=== PATIENT | female | born 1990 | race Hispanic/Latino ===

== ENCOUNTER 2021-10-14 00:38 | Emergency (ER) | payer OTHER ==
[2021-10-14] MEDS ORDERED: ONDANSETRON 4 MG/2 ML INJ IV ONE (01:00)
[2021-10-14] MEDS ORDERED: SODIUM CHLORIDE 0.9% 1000 ML 1,000 ML IV ONE (01:00)
[2021-10-14] MEDS ORDERED: MORPHINE 4 MG/1 ML INJ IV ONE (01:00)
--- NOTE | 2021-10-14 01:03 | Emergency Department Report ---
ED Abdominal Pain HPI - General Chief Complaint: Abdominal Pain Stated Complaint: ABDOMINAL PAIN Time Seen by Provider: 10/14/21 00:53 Source: patient Mode of arrival: Ambulatory Limitations: No Limitations - History of Present Illness Initial Comments: Patient is a 30-year-old female presents emergency with complaints of generalized diffuse abdominal pain that began 10/11/2021. She denies any nausea, vomiting, diarrhea, fever, urinary symptoms, vaginal discharge, vaginal bleeding. She states that she is having normal bowel movements she states that whenever she eats her symptoms worsen. Past medical history of PUD. Allergy to Augmentin and tramadol. She denies any past abdominal surgical history - Related Data Allergies Allergy/AdvReac Type Severity Reaction Status Date / Time amoxicillin [From Augmentin] Allergy Hives Verified 10/14/21 00:50 clavulanic acid Allergy Hives Verified 10/14/21 00:50 [From Augmentin] tramadol Allergy Rash Verified 10/14/21 00:50 ED Review of Systems ROS: Stated complaint: ABDOMINAL PAIN Other details as noted in HPI Comment: All other systems reviewed and negative ED Past Medical Hx - Past Medical History Previous Medical History?: No - Surgical History Past Surgical History?: No - Social History Smoking Status: Current Every Day Smoker Substance Use Type: None ED Physical Exam - General Limitations: No Limitations General appearance: alert, in no apparent distress - Head Head exam: Present: atraumatic, normocephalic - Eye Eye exam: Present: normal appearance - ENT ENT exam: Present: mucous membranes moist - Respiratory Respiratory exam: Present: normal lung sounds bilaterally. Absent: respiratory distress, wheezes, rales, rhonchi, stridor, chest wall tenderness, accessory muscle use, decreased breath sounds, prolonged expiratory - Cardiovascular Cardiovascular Exam: Present: regular rate, normal rhythm, normal heart sounds. Absent: systolic murmur, diastolic murmur, rubs, gallop - GI/Abdominal GI/Abdominal exam: Present: soft, tenderness (generalized), normal bowel sounds. Absent: distended, guarding, rebound, rigid - Neurological Exam Neurological exam: Present: alert, oriented X3 - Psychiatric Psychiatric exam: Present: normal affect, normal mood - Skin Skin exam: Present: warm, dry, intact ED Course Vital Signs 10/14/21 10/14/21 00:41 01:46 Temperature 98.2 F 98.5 F Pulse Rate 114 H 99 H Respiratory 18 17 Rate Blood Pressure 129/92 Blood Pressure 146/102 [Right] O2 Sat by Pulse 100 97 Oximetry - Consultations Consultation #1: 10/14/21 03:[address] Lombardo, general surgery who recommends IV Levaquin and Flagyl given that patient is allergic to penicillin and admit to hospitalist service and he will consult on patient 10/14/21 03:26 Spoke to HARI Almeida working with Dr. Walker, hospitalist accept and resume care of patient, will admit to hospital service, she states that the hospital is out of IV flagyl, I advised she could discuss with hospitalist regarding abx regimen ED Medical Decision Making - Lab Data Result diagrams: 10/14/21 01:12 10/14/21 01:12 Lab Results 10/14/21 10/14/21 10/14/21 Range/Units 01:12 01:12 01:12 WBC 13.2 H (4.5-11.0) K/mm3 RBC 4.83 (3.65-5.03) M/mm3 Hgb 14.5 H (10.1-14.3) gm/dl Hct 43.4 H (30.3-42.9) % MCV 90 (79-97) fl MCH 30 (28-32) pg MCHC 34 (30-34) % RDW 12.7 L (13.2-15.2) % Plt Count 305 (140-440) K/mm3 Lymph % (Auto) 17.8 (13.4-35.0) % [place] % (Auto) 8.0 H (0.0-7.3) % Eos % (Auto) 0.8 (0.0-4.3) % Baso % (Auto) 0.3 (0.0-1.8) % Lymph # (Auto) 2.3 (1.2-5.4) K/mm3 [place] # (Auto) 1.1 H (0.0-0.8) K/mm3 Eos # (Auto) 0.1 (0.0-0.4) K/mm3 Baso # (Auto) 0.0 (0.0-0.1) K/mm3 Seg Neutrophils % 73.1 H (40.0-70.0) % Seg Neutrophils # 9.6 H (1.8-7.7) K/mm3 Sodium 141 (137-145) mmol/L Potassium 3.8 (3.6-5.0) mmol/L Chloride 101.5 (98-107) mmol/L Carbon Dioxide 28 (22-30) mmol/L Anion Gap 15 mmol/L BUN 5 L (7-17) mg/dL Creatinine 0.5 L (0.6-1.2) mg/dL Estimated GFR > 60 ml/min BUN/Creatinine Ratio 10 % Glucose 108 H (65-100) mg/dL Calcium 9.2 (8.4-10.2) mg/dL Total Bilirubin 0.40 (0.1-1.2) mg/dL AST 15 (5-40) units/L ALT 16 (7-56) units/L Alkaline Phosphatase 103 (35-129) units/L Total Protein 7.7 (6.3-8.2) g/dL Albumin 4.2 (3.9-5) g/dL Albumin/Globulin Ratio 1.2 % Lipase 15 (13-60) units/L HCG, Qual Negative (Negative) Urine Color (Yellow) Urine Turbidity (Clear) Urine pH (5.0-7.0) Ur Specific [place] (1.003-1.030) Urine Protein (Negative) mg/dL Urine Glucose (UA) (Negative) mg/dL Urine Ketones (Negative) mg/dL Urine Blood (Negative) Urine Nitrite (Negative) Urine Bilirubin (Negative) Urine Urobilinogen (<2.0) mg/dL Ur Leukocyte Esterase (Negative) Urine WBC (Auto) (0.0-6.0) /HPF Urine RBC (Auto) (0.0-6.0) /HPF U Epithel Cells (Auto) (0-13.0) /HPF Urine Bacteria (Auto) (Negative) /HPF Urine Mucus /HPF Urine Yeast ([place]) /HPF 10/14/21 Range/Units 02:37 WBC (4.5-11.0) K/mm3 RBC (3.65-5.03) M/mm3 Hgb (10.1-14.3) gm/dl Hct (30.3-42.9) % MCV (79-97) fl MCH (28-32) pg MCHC (30-34) % RDW (13.2-15.2) % Plt Count (140-440) K/mm3 Lymph % (Auto) (13.4-35.0) % [place] % (Auto) (0.0-7.3) % Eos % (Auto) (0.0-4.3) % Baso % (Auto) (0.0-1.8) % Lymph # (Auto) (1.2-5.4) K/mm3 [place] # (Auto) (0.0-0.8) K/mm3 Eos # (Auto) (0.0-0.4) K/mm3 Baso # (Auto) (0.0-0.1) K/mm3 Seg Neutrophils % (40.0-70.0) % Seg Neutrophils # (1.8-7.7) K/mm3 Sodium (137-145) mmol/L Potassium (3.6-5.0) mmol/L Chloride (98-107) mmol/L Carbon Dioxide (22-30) mmol/L Anion Gap mmol/L BUN (7-17) mg/dL Creatinine (0.6-1.2) mg/dL Estimated GFR ml/min BUN/Creatinine Ratio % Glucose (65-100) mg/dL Calcium (8.4-10.2) mg/dL Total Bilirubin (0.1-1.2) mg/dL AST (5-40) units/L ALT (7-56) units/L Alkaline Phosphatase (35-129) units/L Total Protein (6.3-8.2) g/dL Albumin (3.9-5) g/dL Albumin/Globulin Ratio % Lipase (13-60) units/L HCG, Qual (Negative) Urine Color Straw (Yellow) Urine Turbidity Clear (Clear) Urine pH 7.0 (5.0-7.0) Ur Specific [place] 1.004 (1.003-1.030) Urine Protein <15 mg/dl (Negative) mg/dL Urine Glucose (UA) Neg (Negative) mg/dL Urine Ketones Neg (Negative) mg/dL Urine Blood Neg (Negative) Urine Nitrite Neg (Negative) Urine Bilirubin Neg (Negative) Urine Urobilinogen < 2.0 (<2.0) mg/dL Ur Leukocyte Esterase Tr (Negative) Urine WBC (Auto) 16.0 H (0.0-6.0) /HPF Urine RBC (Auto) 2.0 (0.0-6.0) /HPF U Epithel Cells (Auto) 6.0 (0-13.0) /HPF Urine Bacteria (Auto) 4+ (Negative) /HPF Urine Mucus Few /HPF Urine Yeast (Budding) 1+ /HPF Vital Signs 10/14/21 10/14/21 00:41 01:46 Temperature 98.2 F 98.5 F Pulse Rate 114 H 99 H Respiratory 18 17 Rate Blood Pressure 129/92 Blood Pressure 146/102 [Right] O2 Sat by Pulse 100 97 Oximetry - Radiology Data Radiology results: report reviewed CT OF THE ABDOMEN AND PELVIS WITH INTRAVENOUS CONTRAST INDICATION / CLINICAL INFORMATION: Generalized abdominal pain. TECHNIQUE: The patient received 100 cc Omnipaque [address] scans at this location are performed using CT dose reduction for ALARA by means of automated exposure control. COMPARISON: None available. FINDINGS: ABDOMEN: The liver, spleen, gallbladder, bile ducts, pancreas, adrenal glands, and kidneys demonstrate no significant abnormality. The aorta is normal in appearance. There is no evidence of adenopathy. There is a moderate amount of stool in the colon. I see no evidence of bowel obstruction or free air. The lung bases are clear. PELVIS: There is acute diverticulitis involving the proximal sigmoid colon with an inflamed diverticulum and moderate bowel wall thickening noted. There is mild pericolonic soft tissue stranding. There is a 2 cm pericolonic abscess posteriorly and inferiorly at that site. Minimal free fluid is present in the cul-de-sac. The uterus and ovaries are normal. There is no evidence of appendicitis. The distal ureters and urinary bladder are normal. I do not identify a hernia. There is minimal spondylosis. IMPRESSION: Acute diverticulitis involving the proximal sigmoid colon with an associated 2 cm pericolonic abscess present. Signer Name: Byron Morgan MD Signed: 10/14/2021 3:11 AM Workstation Name: [id number] Transcribed By: RT Dictated By: Byron Morgan MD Electronically Authenticated By: Byron Morgan MD Signed Date/Time: 10/14/21310 DD/ 5 TD/TT: - Medical Decision Making Patient is a 30-year-old female presents emergency with complaints of generalized diffuse abdominal pain that began 10/11/2021. She denies any nausea, vomiting, diarrhea, fever, urinary symptoms, vaginal discharge, vaginal bleeding. She states that she is having normal bowel movements she states that whenever she eats her symptoms worsen. Past medical history of PUD. Allergy to Augmentin and tramadol. She denies any past abdominal surgical history. Initial vitals with tachycardia which improved upon repeat. On exam patient has diffuse generalized abdominal tenderness. Labs significant for leukocytosis. UA shows evidence of mild UTI. CT abdomen pelvis with IV contrast IMPRESSION: Acute diverticulitis involving the proximal sigmoid colon with an associated 2 cm pericolonic abscess present. Discussed case with Dr. Lombardo, general surgery who recommends IV Levaquin and Flagyl given that patient is allergic to penicillin and admit to hospitalist service and he will consult on patient. Spoke to HARI Almeida working with Dr. Walker, hospitalist accept and resume care of patient, will admit to hospital service, she states that the hospital is out of IV flagyl, I advised she could discuss with hospitalist regarding abx regimen Critical care attestation.: If time is entered above; I have spent that time in minutes in the direct care of this critically ill patient, excluding procedure time. ED Disposition Clinical Impression: Acute diverticulitis, Intra-abdominal abscess Leukocytosis Qualifiers: Leukocytosis type: unspecified Qualified Code(s): D72.829 - Elevated white blood cell count, unspecified UTI (urinary tract infection) Qualifiers: Urinary tract infection type: acute cystitis Hematuria presence: without hematuria Qualified Code(s): N30.00 - Acute cystitis without hematuria Disposition: ADMITTED INPATIENT Is pt being admited?: Yes Does the pt Need Aspirin: No Condition: Fair Instructions: Abdominal Pain (ED) Referrals: PRIMARY CARE, [Primary Care Provider] - 3-5 Days Time of Disposition: 03:27 Print Language: IRISH
[2021-10-14] MEDS ORDERED: PANTOPRAZOLE 40 MG INJ IV ONE (01:13)
[2021-10-14] MEDS ORDERED: fentaNYL 100 MCG/2 ML INJ IV ONE (01:36)
[2021-10-14 01:49] LABS: Basophils % (Auto) 0.3 % (0.0-1.8); Eosinophils # (Auto) 0.1 K/mm3 (0.0-0.4); Eosinophils % (Auto) 0.8 % (0.0-4.3); Hematocrit 43.4 % (30.3-42.9); Hemoglobin 14.5 gm/dl (10.1-14.3); Lymphocytes # (Auto) 2.3 K/mm3 (1.2-5.4); Lymphocytes % (Auto) 17.8 % (13.4-35.0); Mean Corpuscular HGB Conc 34 % (30-34); Mean Corpuscular Volume 90 fl (79-97); Monocytes # (Auto) 1.1 K/mm3 (0.0-0.8); Platelet Count 305 K/mm3 (140-440); Red Blood Count 4.83 M/mm3 (3.65-5.03); Red Cell Distribution Width 12.7 % (13.2-15.2)
[2021-10-14 02:02] LABS: Alanine Aminotransferase 16 units/L (7-56); Albumin 4.2 g/dL (3.9-5); Blood Urea Nitrogen 5 mg/dL (7-17); Calcium 9.2 mg/dL (8.4-10.2); Hemolysis Index 6
[2021-10-14 02:04] LABS: BUN/Creatinine Ratio 10
[2021-10-14 02:05] VITALS: BP 146/102
[2021-10-14 03:06] LABS: Bacteria,Urine 4+ /HPF (Negative); Bilirubin,Urine NEG (Negative); Blood,Urine NEG (Negative); Color,Urine Straw (Yellow); Mucus,Urine FEW /HPF; Protein,Urine <15 mg/dL mg/dL (Negative); Urobilinogen,Urine < 2.0 mg/dL (<2.0)
--- NOTE | 2021-10-14 03:16 | Cat Scan Report ---
CT OF THE ABDOMEN AND PELVIS WITH INTRAVENOUS CONTRAST INDICATION / CLINICAL INFORMATION: Generalized abdominal pain. TECHNIQUE: The patient received 100 cc Omnipaque [address] scans at this location are performed using CT dose reduction for ALARA by means of automated exposure control. COMPARISON: None available. FINDINGS: ABDOMEN: The liver, spleen, gallbladder, bile ducts, pancreas, adrenal glands, and kidneys demonstrat e no significant abnormality. The aorta is normal in appearance. There is no evidence of adenopathy. There is a moderate amount of stool in the colon. I see no evidence of bowel obstruction or free air. The lung bases are clear. PELVIS: There is acute diverticulitis involving the proximal sigmoid colon with an inflamed diverticu lum and moderate bowel wall thickening noted. There is mild pericolonic soft tissue stranding. There is a 2 cm pericolonic abscess posteriorly and inferiorly at that site. Minimal free fluid is present in the cul-de-sac. The uterus and ovaries are normal. There is no evidence of appendicitis. The distal ureters and urina ry bladder are normal. I do not identify a hernia. There is minimal spondylosis. IMPRESSION: Acute diverticulitis involving the proximal sigmoid colon with an associated 2 cm pericol onic abscess present. Signer Name: Byron Morgan MD Signed: 10/14/2021 3:11 AM Workstation Name: [id number]
[2021-10-14] MEDS ORDERED: metroNIDAZOLE/NS 500 MG/100 ML 500 MG/100 ML BAG IV ONE (03:20)
[2021-10-14] MEDS ORDERED: CEFEPIME/NS 2 GM/100 ML 2 GM/100 ML BAG IV ONE (03:20)
--- NOTE | 2021-10-14 03:51 | History and Physical Report ---
History of Present Illness Date of examination: 10/14/21 Date of admission: 10/14/21 Chief complaint: abdominal pain History of present illness: This is a 30-year seen in ED at bedside. Patient reports abdominal pain of 06/27. She presents emergency with complaints of generalized diffuse abdominal pain that began 10/11/2021. She denies any nausea, vomiting, diarrhea, fever, urinary symptoms, vaginal discharge, vaginal bleeding. She states that she is having normal bowel movements she states that whenever she eats her symptoms worsen. Past medical history of PUD. On assessment, she has difuse abdominal tenderness. She admits tobacco use and illicit drug use but denies chronic alcohol use. CT of the abdomen showed diverticulitis and abscess formation. I re viewed lab valuse and v/s. patient has leucocytosis and UTI. She is Allergy to Augmentin and tramadol. She denies any past abdominal surgical history. Past History Past Medical History: No medical history Past Surgical History: Social history: lives with family, smoking (she admits drug use and she said she smokes about 1 pack daily.), IV drug use, full code. denies: alcohol abuse, prescription drug abuse Family history: diabetes (mom has diabetes) Medications and Allergies Allergies Allergy/AdvReac Type Severity Reaction Status Date / Time amoxicillin [From Augmentin] Allergy Hives Verified 10/14/21 00:50 clavulanic acid Allergy Hives Verified 10/14/21 00:50 [From Augmentin] tramadol Allergy Rash Verified 10/14/21 00:50 Active Meds: Active Medications Metronidazole (Flagyl 500 Mg/100 Ml) 500 mg in 100 mls @ 200 mls/hr IV ONCE ONE; Protocol Stop: 10/14/21 03:49 Levofloxacin/Dextrose (Levaquin 750mg/150ml) 750 mg in 150 mls @ 100 mls/hr IV ONCE ONE; Protocol Stop: 10/14/21 04:52 Last Admin: 10/14/21 03:37 Dose: 100 mls/hr Documented by: Review of Systems Constitutional: anorexia, fatigue, malaise Ears, nose, mouth and throat: no epistaxis, no bleeding gums Breasts: no discharge Cardiovascular: no chest pain, no dyspnea on exertion Respiratory: no congestion, no wheezing Gastrointestinal: abdominal pain, nausea Rectal: no hemorrhoids Integumentary: no rash, no pruritis, no redness Neurological: no head injury Psychiatric: anxiety Hematologic/Lymphatic: no easy bruising, no easy bleeding Allergic/Immunologic: no urticaria Exam - Constitutional Vitals: Temp Pulse Resp BP Pulse Ox 98.5 F 99 H 17 146/102 97 10/14/21 01:46 10/14/21 01:46 10/14/21 01:46 10/14/21 01:46 10/14/21 01:46 General appearance: Present: mild distress, well-nourished - EENT Eyes: Present: PERRL ENT: hearing intact, clear oral mucosa - Neck Neck: Present: supple, normal ROM - Respiratory Respiratory effort: normal Respiratory: bilateral: CTA - Cardiovascular Heart Sounds: Present: S1 & S2. Absent: rub, click - Extremities Extremities: pulses symmetrical, No edema Peripheral Pulses: within normal limits - Abdominal General gastrointestinal: Present: soft, non-tender, non-distended, normal bowel sounds Localized gastrointestinal: tender: diffuse, RUQ, LUQ, RLQ, LLQ Female genitourinary: Present: normal - Integumentary Integumentary: Present: clear, warm, dry - Musculoskeletal Musculoskeletal: strength equal bilaterally, generalized weakness - Psychiatric Psychiatric: appropriate mood/affect, intact judgment & insight, cooperative - Neurologic Neurologic: CNII-XII intact, moves all extremities - Allied Health Allied health notes reviewed: nursing Results - Labs CBC & Chem 7: 10/14/21 01:12 10/14/21 01:12 Labs: Abnormal lab results 10/14/21 10/14/21 10/14/21 Range/Units 01:12 01:12 02:37 WBC 13.2 H (4.5-11.0) K/mm3 Hgb 14.5 H (10.1-14.3) gm/dl Hct 43.4 H (30.3-42.9) % RDW 12.7 L (13.2-15.2) % [place] % (Auto) 8.0 H (0.0-7.3) % [place] # (Auto) 1.1 H (0.0-0.8) K/mm3 Seg Neutrophils % 73.1 H (40.0-70.0) % Seg Neutrophils # 9.6 H (1.8-7.7) K/mm3 BUN 5 L (7-17) mg/dL Creatinine 0.5 L (0.6-1.2) mg/dL Glucose 108 H (65-100) mg/dL Urine WBC (Auto) 16.0 H (0.0-6.0) /HPF Assessment and Plan - Patient Problems (1) Acute diverticulitis Current Visit: Yes Status: Acute Plan to address problem: Ct of the abdomen-showed acute diverticulitis with abscess Empiric antibiotic with flagyl and Levaquin General Surgeon consult Keep NPO (2) Intra-abdominal abscess Current Visit: Yes Status: Acute Plan to address problem: Empiric anbiotic NPO status (3) Leukocytosis Current Visit: Yes Status: Acute Qualifiers: Leukocytosis type: unspecified Qualified Code(s): D72.829 - Elevated white blood cell count, unspecified Plan to address problem: Blood culture and urine culture [place] IV hydration Monitor WBC (4) UTI (urinary tract infection) Current Visit: Yes Status: Acute Qualifiers: Urinary tract infection type: acute cystitis Hematuria presence: without hematuria Qualified Code(s): N30.00 - Acute cystitis without hematuria Plan to address problem: Urine culture
[2021-10-14] MEDS ORDERED: SENNOSIDES 8.6 MG TAB PO PRN (04:01)
[2021-10-14] MEDS ORDERED: oxyCODONE /ACETAMINOPHEN 5-325MG TAB PO PRN (04:01)
[2021-10-14] MEDS ORDERED: IBUPROFEN 600 MG TAB PO PRN (04:01)
[2021-10-14] MEDS ORDERED: ONDANSETRON 4 MG/2 ML INJ IV PRN (04:01)
[2021-10-14] MEDS ORDERED: MAGNESIUM HYDROXIDE (MOM) ORAL LIQD UDC PO PRN (04:01)
[2021-10-14] MEDS ORDERED: PROMETHAZINE 25 MG RECT SUPP PR PRN (04:01)
[2021-10-14] MEDS ORDERED: MORPHINE 4 MG/1 ML INJ IV PRN (04:01)
[2021-10-14] MEDS ORDERED: ACETAMINOPHEN 325 MG TAB PO PRN ×2 (04:01)
[2021-10-14] MEDS ORDERED: MORPHINE 2 MG/1 ML INJ IV PRN (04:01)
[2021-10-14] MEDS ORDERED: HYDROmorphone 1 MG/1 ML INJ IV PRN (04:01)
[2021-10-14] MEDS ORDERED: NALOXONE 0.4 MG/1 ML INJ IV PRN (04:01)
[2021-10-14] MEDS ORDERED: SODIUM CHLORIDE 0.9% 1000 ML 1,000 ML IV SCH (04:15)
[2021-10-14] MEDS ORDERED: metroNIDAZOLE 500 MG TAB PO SCH (06:00)
[2021-10-14] MEDS ORDERED: FAMOTIDINE 20 MG/2 ML INJ IV SCH (10:00)
== END 2021-10-14 05:49 | disposition admitted as inpatient to this hospital (09) ==
LOC: ED 00:38 → 3A 04:01 → UNDOADMIN 04:01
DX: K57.92 Diverticulitis of intestine, part unspecified, without perforation or abscess without bleeding (principal); D72.829 Elevated white blood cell count, unspecified; N39.0 Urinary tract infection, site not specified; F17.200 Nicotine dependence, unspecified, uncomplicated; Z79.899 Other long term (current) drug therapy
CPT/HCPCS: 36415; 74177; 80053; 81001; 83690; 84703; 85025; 87086; 96361; 96365; 96375; 99284; C9113; J1956; J2405; J7030; Q9967; Q0162; J2270; J3010